=== PATIENT | female | born 1985 | race Caucasian/White ===

== ENCOUNTER → 2016-12-07 | Outpatient (CLI) | payer BC ==
--- NOTE | 2016-12-07 16:49 | Diagnostic Imaging Report ---
INDICATION: Pelvic pain. FINDINGS: The uterus measures 10 x 6 x 4.7 cm. Endometrial thickness measures 5 mm. There do appear to be a few small calcifications along the endometrium. Also calcifications scattered in the myometrium. No myometrial masses are demonstrated. Adnexa show no masses. The ovaries are not definitely identified on this exam. There is no free fluid. IMPRESSION: 1. Few calcifications noted along the endometrium as well as within the myometrium. Adenomyosis would be a consideration. 2. Ovaries are not demonstrated though no masses or free fluid demonstrated in the adnexa. Dictated by: Dictated on workstation # [id number]
== END ==
LOC: RAD 15:25
PROVIDERS: ATTEND Obstetrics & Gynecology
DX: R10.2 Pelvic and perineal pain (principal)
CPT/HCPCS: 76830; 76856

== ENCOUNTER → 2016-12-19 | Outpatient (CLI) | payer BC ==
--- NOTE | 2016-12-19 19:00 | Diagnostic Imaging Report ---
INDICATION: No monthly cycles, on control. Fullness felt in right adnexa. TECHNIQUE: Multiple real time mora scale sonographic images were obtained of the pelvis transabdominally and endovaginally. CORRELATION STUDY: 12/07/2016. FINDINGS: UTERUS/ENDOMETRIUM: Uterus measures 8.5 x 5.6 x 4.7 cm. The uterus has an unremarkable appearance. The endometrium is normal in thickness measuring 9 mm. There are however some irregular echogenic foci, particularly within the fundal aspect, likely reflective of calcifications. This was demonstrated on prior examination as well. RIGHT OVARY: Not visualized. LEFT OVARY: Not visualized. Ovaries may be obscured by overlying bowel gas or perhaps positioning. Definitive adnexal mass lesion is not demonstrated but is largely obscured by the bowel. No significant free pelvic fluid. IMPRESSION: 1. Endometrial thickness within normal limits. However, there are some irregular echogenic foci, particularly in the fundal aspect, likely reflective of calcifications. This could be reflective of underlying synechiae or perhaps adenomyosis. Findings do appear to be stable. 2. Ovaries cannot be demonstrated on either transabdominal and/or endovaginal imaging. This could be owing to the adnexa being largely obscured by bowel gas or perhaps positioning of the ovaries. Dictated by: Dictated on workstation # [id number]
== END ==
LOC: RAD 16:09
PROVIDERS: ATTEND Obstetrics & Gynecology
DX: R10.2 Pelvic and perineal pain (principal); R93.8 Abnormal findings on diagnostic imaging of other specified body structures
CPT/HCPCS: 76830; 76856